=== PATIENT | male | born 1980 | race Caucasian/White ===

== ENCOUNTER 2021-03-15 05:08 | Emergency (ER) | payer MEDICAID, SELFPAY ==
[2021-03-15 05:11] VITALS: BP 148/84; PULSE 80; RESP 18; TEMP 36.7; O2SAT 100
--- NOTE | 2021-03-15 05:15 | DI.CT_ITS ---
Exam(s) CT ABDOMEN PELVIS W EXAM: CT ABDOMEN PELVIS W CLINICAL HISTORY: ruq pain, eval gb TECHNIQUE: Imaging Protocol: Axial computed tomography images with coronal and sagittal reformatted images were created and reviewed CONTRAST MATERIAL: Intravenous: Omnipaque 350 Contrast volume:84 mL Oral: No COMPARISON: No previous for comparison. FINDINGS: ABDOMEN: Lung Bases: Normal where visualized. Liver: Normal density. No measurable mass. Portal, Superior Mesenteric, and Splenic Veins: Unremarkable. Gallbladder and Biliary Tract: There is material seen in the dependent portion of the gallbladder whi ch may represent stones or sludge. The gallbladder measures 4.2 cm in diameter. There is a question of mild pericholecystic fluid. No significant biliary ductal dilatation. Pancreas: Normal density, no abnormal calcifications or inflammatory process. Spleen: Normal. Adrenals: No masses seen. Kidneys: Normal size, contour and axis. There is a 3 mm nonobstructing stone in the lower pole of the left kidney. There are 2 nonobstructing stones in the midpole of the right kidney. The largest is 3 mm in diameter. No masses seen. Abdominal Aorta: Abdominal portion non-dilated. Atherosclerosis. Bowel: No obstruction or bowel wall thickening. No evidence of appendicitis. Peritoneal Cavity: No ascites, collection or mesenteric inflammatory response. No free air. Lymph Nodes: Within normal limits. Bones: Within normal limits for the patient's age. Soft Tissues: Unremarkable. PELVIS: Bladder: Symmetric distention, no gross wall thickening. Reproductive Organs: Unremarkable as visualized. Lymph Nodes: Within normal limits. Bones: Within normal limits for the patient's age. IMPRESSION: 1. Distended gallbladder with minimal pericholecystic fluid. Debris is seen within the dependent por tion of the gallbladder which may represent stones or sludge. No biliary ductal dilatation. If ther e is concern for acute cholecystitis/cholelithiasis gallbladder ultrasound is recommended. 2. Bilateral nephrolithiasis. No hydronephrosis. RADIATION DOSE DELIVERED: 486.27mGy.cm Total DLP DATA REPOSITORY: All CT scans at this facility are submitted to the National Radiology Data Registry (NRDR) Dose Index Registry (DIR) with the [employer] (ACR). RADIATION OPTIMIZATION: All CT scans at this facility use at least one of these dose optimization te chniques: automated exposure control; mA and/or kV adjustment per patient size (includes targeted exa ms where dose is matched to clinical indication); or iterative reconstruction.
--- NOTE | 2021-03-15 05:18 | W.ED.GENAD ---
Discharge Plan Disposition Patient Disposition: HOME Condition: Good Discharge Details Clinical Impression: Biliary colic Primary Care Provider: Lacy Wheeler ED Provider: Joseluis Avendano Home Meds and New Rx's Prescriptions: No Action No Known Home Meds RF: 0 Discharge Instructions Instructions: Biliary Colic (ED), Low Fat Diet (ED) Additional Instructions: At this time your symptoms are consistent with what is called biliary colic. Your gallbladder is somewhat distended, but does not need to be emergently surgically removed at this time. Please follow-up closely on an outpatient basis with the surgeon. We then placed a referral, you will be called with a appointment time. Please avoid any fatty greasy or dairy product as this will reignite your symptoms. Take Tylenol and Motrin as needed for pain. If you notice any worsening of your symptoms, or any new symptoms such as vomiting, diarrhea, fever, chills, shortness of breath, chest pain, numbness, weakness, or fainting , please return immediately to the emergency department for reevaluation. Please follow up with your primary care provider as soon as possible for reassessment and reevaluation. As always, it was a pleasure participating in your medical care today. Referrals: Ольга Coelho MD [ [facility] STAFF PHYSICIAN] - Cathryn Jimenez DO [OSTEOPATHIC DOCTOR] - Lacy Wheeler NP [Primary Care Provider] - Medical Decision Making There is this is a 40-year-old male with a past medical history of hepatitis C, previous appendectomy, chronic mild GI upset, who presents today for evaluation of right upper quadrant abdominal pain. Patient states that it began earlier this afternoon, but then got notably worse at about 1 AM. Patient did eat a greasy meal earlier in the evening and felt that this did make his pain worse. He describes the pain is constant, worse when taking a deep breath, improved by nothing. Pain is sharp in nature, and he feels that it wraps around the right side of his back and abdomen. No radiation to the groin. No urinary complaints. No chest pain. No shortness of breath. No other complaints at this time. No other sick contacts at home. Physical exam demonstrates tenderness in the right upper quadrant, Positive Cross sign. Symptoms are concerning for acute Alexsandra cystitis versus biliary colic. Will give Toradol, gently rehydrate, get a CT scan, monitor closely and reassess. 7:18 AM Laboratory work-up is returned and is notably unremarkable. No white count bandemia or left shift, electrolytes normal, renal function normal, transaminases and bilirubin are normal. Lipase is normal. CT scan shows evidence of a prominent gallbladder that is distended with sludge as well as minimal wall thickening up to 4 mm, minimal intrahepatic biliary dilatation, but the common bile duct is normal. Gallstones are noted. On reassessment after morphine and Toradol patient's pain is gone from a 10 out of 10 to a 5 out of 10. He is feeling better. I did contact surgery on-call and discussed the case with Dr. Dye, she personally reviewed the images, and at this time with normal labs, no white count or fever, there is does not appear to be an indication for an emergent cholecystectomy as there is no evidence of significant cholecystitis. We will schedule outpatient follow-up for the patient. I discussed with the patient the importance of close surgical follow-up, as well as signs and symptoms that would be indicative of a prompt return. We also had a lengthy discussion about appropriate diet for biliary colic. On reassessment of the abdomen prior to discharge the patient demonstrates no clinical evidence at all of an acute surgical abdomen. Pain resolved. I have extensively reviewed the treatment plan and discharge instructions with the patient. I have addressed all patient concerns at this time. The patient was made aware of what symptoms to monitor for that would warrant a return to the emergency department. Discussed the plan with the patient, they demonstrate verbal understanding and agreement with our assessment and plan at this time. The documentation in this chart was dictated using [employer] dictation software. Please excuse any dictation errors. FINDINGS: Lungs: Lung bases are clear. Liver: Normal. No mass. Gallbladder and bile ducts: Gallbladder is prominently distended. Sludge is seen in the lumen. No significant pericholecystic fluid noted. There is minimal wall thickening up to 4 mm. Minimal intrahepatic biliary dilatation. Common duct is normal. Pancreas: Normal. No ductal dilation. Spleen: Normal. No splenomegaly. Adrenal glands: Normal. No mass. Kidneys and ureters: Kidneys enhance symmetrically. There is a punctate nonobstructing left renal lower pole stone. Stomach and bowel: Unremarkable. No obstruction. No mucosal thickening. Appendix: Not identified. No secondary signs of appendicitis. Intraperitoneal space: Unremarkable. No free air. No significant fluid collection. Vasculature: Atherosclerotic aorta without aneurysm. No dissection. Lymph nodes: Unremarkable. No enlarged lymph nodes. Urinary bladder: Unremarkable as visualized. Reproductive: Unremarkable as visualized. Bones/joints: Unremarkable. No acute fracture. Soft tissues: Unremarkable. IMPRESSION: Prominent gallbladder distention with sludge in the lumen. No intra or extrahepatic biliary dilatation seen. Left nephrolithiasis. Thank you for allowing us to participate in the care of your patient. Dictated and Authenticated by: Smiley Villarreal MD 03/15/2021 6:55 AM Eastern Time ([place] & [place]) HPI General Date/Time Provider Initiated Documentation: 03/15/21 05:09. HPI Narrative: There is this is a 40-year-old male with a past medical history of previous appendectomy, chronic mild GI upset, who presents today for evaluation of right upper quadrant abdominal pain. Patient states that it began earlier this afternoon, but then got notably worse at about 1 AM. Patient did eat a greasy meal earlier in the evening and felt that this did make his pain worse. He describes the pain is constant, worse when taking a deep breath, improved by nothing. Pain is sharp in nature, and he feels that it wraps around the right side of his back and abdomen. No radiation to the groin. No urinary complaints. No chest pain. No shortness of breath. No other complaints at this time. No other sick contacts at home. Related Data Home Medications Medication Instructions Recorded Confirmed Unknown [No Known Home Meds] 03/15/21 03/15/21 Allergies Allergy/AdvReac Type Severity Reaction Status Date / Time No Known Allergies Allergy Unverified 03/15/21 05:17 General Stated Complaint: Abd Prob ALONDRA: 3 Review of Systems All systems reviewed & are unremarkable except as noted in HPI and below PFSH Social History Smoking/Tobacco Use Status: Current every day Tobacco Type: cigarettes Smoking risk assessment performed?: Yes Alcohol Intake: never Substance use type: does not use and marijuana Do you feel safe at home: Yes Do you feel safe in your relationship?: Yes Exam Narrative Exam Narrative: 1.Const: Well-nourished, Well-developed, appearing stated age 2.Eyes: PERRL, no conjunctival injection, and symmetrical lids. 3.ENT: Atraumatic external nose and ears. Moist MM. Neck: Symmetric, trachea midline, No thyromegaly. 4.CVS: +S1/S2, No murmurs or gallops. Peripheral pulses 2+ and equal in all extremities. Brisk capillary refill in all extremities. 5.RESP: Unlabored respiratory effort. Clear to auscultation bilaterally. No wheezes rales or rhonchi 6.GI: Soft, nondistended, no hepatosplenomegaly, moderate tenderness in the right upper quadrant, positive Cross sign, no pain to McBurney's point. No genital tenderness. No CVA tenderness. 7.MSK: Normocephalic/Atraumatic, Extremities w/o deformity or ttp No cyanosis or clubbing, Normal movement of all extremities 8.Skin: Warm, Dry. No rashes or lesions. 9.Neuro: energy trader II-XII grossly intact. Sensation grossly intact, no focal neurologic deficits. 10.Psych: (AAO) x3. Appropriate mood and affect Course Vital Signs Vital signs: Vital Signs Temperature 36.7 C 03/15/21 05:11 Pulse 80 03/15/21 05:11 Respiratory Rate 18 03/15/21 05:11 Blood Pressure 148/84 H 03/15/21 05:11 Pulse Oximetry 100 03/15/21 05:11 Temperature 36.7 C 03/15/21 05:11 Temperature Source Temporal Artery Scan 03/15/21 05:11 Pulse 80 03/15/21 05:11 Respiratory Rate 18 03/15/21 05:11 Blood Pressure 148/84 H 03/15/21 05:11 Blood Pressure Position Supine 03/15/21 05:11 Pulse Oximetry 100 03/15/21 05:11 Oxygen Delivery Method Room Air 03/15/21 05:11 Oxygen Flow Rate 0 03/15/21 05:11 Pain Level 8 03/15/21 05:11
[2021-03-15 05:30] LABS: Abs Immature Grans 0.03 10^3/uL (0.0-0.06); Absolute Basophil Count 0.03 10^3/uL (0.0-0.2); Absolute Eosinophil Count 0.14 10^3/uL (0.0-0.7); Absolute Lymphocyte Count 2.91 10^3/uL (1.2-3.4); Absolute Monocyte Count 0.73 10^3/uL (0.1-0.8); Absolute Neutrophil Count 5.83 10^3/uL (1.2-6.7); Basophils % 0.3; Eosinophils % 1.4; HCT 41.8 % (40.0-50.0); HGB 14.5 g/dL (13.5-17.5); Immature Grans % 0.3; Lymphocytes % 30.1; MCHC 34.7 % (32.0-36.0); MCV 95.2 fL (80-95); MPV 9.7 fL (8.0-11.0); Monocytes % 7.5; Neutrophils % 60.4; Nucleated RBC 0 %; Platelet Count 283 10^3/uL (130-400); RBC 4.39 10^6/uL (4.36-5.78); RDW 12.6 % (11.8-14.1); RDW-SD 44.1 fL; WBC 9.67 10^3/uL (4.4-10.8)
[2021-03-15] MEDS: Ondansetron 4 MG/2 ML VIAL IVP (05:30)
[2021-03-15] MEDS: Normal Saline 500 ML IV (05:30)
[2021-03-15] MEDS: Ketorolac 15 MG/ML VIAL IVP (05:30)
[2021-03-15 06:02] LABS: ALT 39 U/L (16-63); AST 18 U/L (15-37); Albumin 3.7 g/dL (3.4-5.0); Alkaline Phosphatase 66 U/L (46-116); Anion Gap 5.4 mmol/L (3-11); BUN 17 mg/dL (7-18); Bilirubin, Total 0.2 mg/dL (0.2-1.0); CO2 28.6 mmol/L (21.0-32.0); CREATININE 0.8 mg/dL (0.70-1.30); Calcium 8.3 mg/dL (8.5-10.1); Chloride 107 mmol/L (98-107); Glucose 104 mg/dL (74-106); Lipase 172 U/L (73-393); Potassium 3.5 mmol/L (3.5-5.1); Sodium 141 mmol/L (136-145); Total Protein 6.8 g/dL (6.4-8.2)
--- NOTE | 2021-03-15 06:06 | NUR.NOTE ---
Reports pain slightly better after medication administration. Unable to void at this time. CT called; patient ready.Nursing Note:
[2021-03-15 06:25] VITALS: BP 147/88; PULSE 76; RESP 18; O2SAT 99
--- NOTE | 2021-03-15 06:25 | NUR.NOTE ---
returns from DINursing Note:
[2021-03-15] MEDS: Omnipaque 350 MG/ML 100 ML BTL IJ (06:27)
[2021-03-15] MEDS: Normal Saline - Diluent 50 ML VIAL IV (06:28)
--- NOTE | 2021-03-15 06:56 | DI.VRAD_ITS ---
PROCEDURE INFORMATION: Exam: CT Abdomen And Pelvis With Contrast Exam date and time: 03/15/2021 5:18 AM Age: 40 years old Clinical indication: Abdominal pain; Localized; Right upper quadrant (ruq); Patient HX: Ruq pain, eval gb TECHNIQUE: Imaging protocol: Computed tomography of the abdomen and pelvis with contrast. COMPARISON: No relevant prior studies available. FINDINGS: Lungs: Lung bases are clear. Liver: Normal. No mass. Gallbladder and bile ducts: Gallbladder is prominently distended. Sludge is seen in the lumen. No significant pericholecystic fluid noted. There is minimal wall thickening up to 4 mm. Minimal intrahepatic biliary dilatation. Common duct is normal. Pancreas: Normal. No ductal dilation. Spleen: Normal. No splenomegaly. Adrenal glands: Normal. No mass. Kidneys and ureters: Kidneys enhance symmetrically. There is a punctate nonobstructing left renal lower pole stone. Stomach and bowel: Unremarkable. No obstruction. No mucosal thickening. Appendix: Not identified. No secondary signs of appendicitis. Intraperitoneal space: Unremarkable. No free air. No significant fluid collection. Vasculature: Atherosclerotic aorta without aneurysm. No dissection. Lymph nodes: Unremarkable. No enlarged lymph nodes. Urinary bladder: Unremarkable as visualized. Reproductive: Unremarkable as visualized. Bones/joints: Unremarkable. No acute fracture. Soft tissues: Unremarkable. IMPRESSION: Prominent gallbladder distention with sludge in the lumen. No intra or extrahepatic biliary dilatation seen. Left nephrolithiasis. Dictated and Authenticated by: Smiley Villarreal MD. Ordering:INA Huggins MD
[2021-03-15] MEDS: ACETAMINOPHEN 1,000 MG/100 ML BTL 400 MG IVPB (07:18)
--- NOTE | 2021-03-15 07:24 | NUR.NOTE ---
Nursing Note: [facility]erral [facility] for follow up of biliary colic within to 2 weeks. Lady Perales
[2021-03-15 07:46] VITALS: BP 133/84; PULSE 74; RESP 18; TEMP 36.8; O2SAT 97
== END 2021-03-15 07:45 | disposition home or self-care (01) ==
PROVIDERS: Emergency Provider Student in an Organized Health Care Education/Training Program; PCP Nurse Practitioner Family
DX: K80.50 Calculus of bile duct without cholangitis or cholecystitis without obstruction (principal)
CPT/HCPCS: 36415; 80053; 83690; 96361; 96365; 96375; 96376; 99285; 74177; 81003; 85025; 99284; J0131; J1885; J2405; J3490

== ENCOUNTER 2021-04-01 00:59 | Outpatient (CLI) | payer MEDICAID, SELFPAY ==
--- NOTE | 2021-04-01 06:15 | DI.US_ITS ---
Exam(s) US ABDOMEN EXAM: US ABDOMEN CLINICAL HISTORY: ruq pain and nausea,biliary colic,k80.50 TECHNIQUE: Ultrasound abdomen performed using standard protocol. COMPARISON: CT CT ABDOMEN PELVIS W from 03/15/2021 FINDINGS: ABDOMINAL AORTA AND IVC: Visualized portions normal caliber. PANCREAS: Normal where visualized. LIVER: Normal. Hepatopedal flow in the Portal Vein. GALLBLADDER: Multiple mobile gallstones are seen. No evidence of wall thickening. No pericholecystic fluid identified. BILIARY SYSTEM: Common bile duct measures < 7 mm. No intrahepatic biliary ductal dilation. MARTE'S SIGN: Negative. KIDNEYS: Kidneys are symmetric in size. No evidence of renal calculi. No evidence of hydronephrosis. No renal mass or cyst identified. SPLEEN: Not enlarged. ASCITES: None seen. IMPRESSION: Cholelithiasis. No sonographic findings to suggest acute cholecystitis. DATA REPOSITORY:
== END 2021-04-01 01:19 ==
PROVIDERS: Visit Provider Surgery
DX: K80.20 Calculus of gallbladder without cholecystitis without obstruction (principal)
CPT/HCPCS: 76700

== ENCOUNTER 2021-04-02 01:28 | Outpatient (CLI) | payer MEDICAID, SELFPAY ==
--- NOTE | 2021-04-02 08:00 | ETT_ITS ---
APPROVED REPORT Exam: Exercise Treadmill Patient Location: Out-Patient Room/Bed: Stress Nurse: France Elise RN Ordering Provider:MISAELOscar MARAVILLA, Contact Number: [phone] BMI: 19.19 Baseline Rhythm: Sinus Rhythm Indications: preop/ dad NC 31/ chest pain and palpitations, smoker Medical History Medical History: Hyperlipidemia, COPD, smoker, anxity, hx drug abuse, hepatitis C Cardiac Medications: None Allergies: NKA Cardiac Risk Factors: Hyperlipidemia, COPD, smoker, family hx Previous Cardiac Procedures: None Pretest Chest Pain Characteristics: None Exercise History: Sedentary Physical Disabilities: None Lung Sounds: Clear to auscultation Heart Sounds: Regular Stress Test Details Test: Exercise stress testing was performed using a [place] protocol. Rest Stress HR Resting HR Supine: 64 bpm Max Heart Rate (APMHR): 181 bpm Resting HR Standin bpm Target HR (85% APMHR): 153 bpm Max HR Achieved: 158 bpm % of APMHR: 87 Recovery HR: 90 bpm HR response to stress: Normal HR response to stress BP Resting BP Supine: 126/80 mmHg Resting BP Standin/80 mmHg Max BP: 190/88 mmHg Recovery BP: 132/76 mmHg BP response to stress: Normal blood pressure response to stress. ECG Resting ECG: Sinus Rhythm Ectopy: None Stress ECG: Sinus Tachycardia ST Change: No significant ST segment changes noted Arrhythmia: None Recovery ECG: Sinus Rhythm Recovery ST Change: No significant ST segment changes noted Recovery Arrhythmia: Occasional PAC, rare PVC Clinical Reason for Termination: Fatigue Stress Symptoms: General Fatigue, Dyspnea, Dizziness Exercise duration: 11 min59 sec Highest Stage Reached: Stage 4: 4.2 mph at 16% grade. Exercise capacity: 13.48 METs Rodriguez Treadmill Score: 11 Rate Pressure Product: [id number] Stress ECG Conclusion 1. Resting electrocardiogram was within normal limits 2. Patient exercised on the [place] protocol and completed a workload of 13.48 METS, stopping due to fa tigue and shortness of breath 3. Normal hemodynamic response to exercise. The patient achieved 87% of predicted heart rate for age 4. Electrocardiographically there was no evidence of myocardial ischemia 5. There were no significant dysrhythmias Rodriguez Treadmill Score is 11 which is Low risk.
== END 2021-04-02 01:48 ==
PROVIDERS: Visit Provider Surgery
DX: Z82.49 Family history of ischemic heart disease and other diseases of the circulatory system (principal); Z86.59 Personal history of other mental and behavioral disorders; R76.8 Other specified abnormal immunological findings in serum; F41.9 Anxiety disorder, unspecified; F17.210 Nicotine dependence, cigarettes, uncomplicated; K80.50 Calculus of bile duct without cholangitis or cholecystitis without obstruction; E78.2 Mixed hyperlipidemia; J44.9 Chronic obstructive pulmonary disease, unspecified
CPT/HCPCS: 93017

== ENCOUNTER 2021-05-04 02:42 | Outpatient (CLI) | payer MEDICAID, SELFPAY ==
[2021-05-04 10:36] LABS: Source Nasal/Nares
[2021-05-04 14:32] LABS: COVID-19 PCR Negative (Negative)
== END 2021-05-04 02:43 | disposition home or self-care (01) ==
LOC: LBO 02:42
PROVIDERS: Visit Provider Surgery
DX: Z20.822 Contact with and (suspected) exposure to COVID-19 (principal)
CPT/HCPCS: 87635

== ENCOUNTER 2021-05-05 08:57 | Day surgery (SDC) | payer MEDICAID, SELFPAY ==
[2021-05-05] VITALS (12 sets, daily range): BP systolic 113–146; BP diastolic 62–89; PULSE 63–73; RESP 12–27; TEMP 36.4–36.8; O2SAT 96–100; BMI 19.0
--- NOTE | 2021-05-05 06:27 | W.ANESPRE ---
General Info Date of Service Date Performed: 05/05/21 Height: 5 ft 9 in Weight: 58.513 kg Body Mass Index (BMI): 19.0 Surgical Procedure: Operation Date: 05/05/21 11:25 Proposed Procedures Side Surgeon p Cholecystectomy Laparoscopic Cathryn Jimenez, DO Meds Allergies and Home Medications Allergies Allergy/AdvReac Type Severity Reaction Status Date / Time No Known Allergies Allergy Unverified 05/05/21 09:20 Home Medication Medication Instructions Recorded acetaminophen [Acetaminophen Extra 1,000 mg PO DIRECTED 05/04/21 Strength] Current Visit Medications: Current Medications Generic Name Dose Route Start Last Admin Trade Name Freq PRN Reason Stop Dose Admin Acetaminophen 1,000 mg 05/05/21 06:00 Acetaminophen 500 Mg Tab PO 06/03/21 23:59 PREOP AINSLEY Gabapentin 300 mg 05/05/21 06:00 Gabapentin 300 Mg Cap PO 06/03/21 23:59 PREOP AINSLEY Ringer's Solution 1,000 mls @ 80 mls/hr 05/05/21 06:00 IV 06/03/21 23:59 INFUSION AINSLEY Cefazolin Sodium/Dextrose 2 gm in 50 mls @ 100 mls/hr 05/05/21 06:00 Ancef Duplex IVPB 06/03/21 23:59 PREOP AINSLEY IV Miscellaneous Supplies 1 each 05/05/21 06:00 Iv Access IV 06/03/21 23:59 DIRECTED AINSLEY Sodium Chloride 0 ml 05/05/21 06:00 Normal Saline Flush 10 Ml Syr IV 06/03/21 23:59 PRN PRN Sodium Chloride 0 ml 05/05/21 06:00 Normal Saline 10 Ml Vial IJ 06/03/21 23:59 DIRECTED PRN Sterile Water 0 ml 05/05/21 06:00 Water,Injection,Sterile 10 Ml Vial IJ 06/03/21 23:59 DIRECTED PRN PFSH Active Problems Active Problems: Problem Status Onset Code Gallstones without obstruction of gallbladder K80.20 Elevated cholesterol E78.00 COPD (chronic obstructive pulmonary disease) J44.9 Family history of NC (myocardial infarction) Z82.49 Hx of drug abuse F19.11 Hepatitis C antibody positive in blood R76.8 Anxiety F41.9 Smoker F17.200 Biliary colic K80.50 Medical History Active Problem List Biliary colic (Acute) Smoker (Acute) Anxiety (Chronic) Hepatitis C antibody positive in blood (Acute) Hx of drug abuse (Acute) Family history of NC (myocardial infarction) (Acute) COPD (chronic obstructive pulmonary disease) (Chronic) Elevated cholesterol (Chronic) Gallstones without obstruction of gallbladder (Acute) Medical History Elevated cholesterol with elevated triglycerides Surgical History Surgical History (Updated 05/05/21 @ 09:09 by Maximiliano Love) History of appendectomy Tobacco Smoking/Tobacco Use Status: Current every day Tobacco Type: cigarettes Alcohol Alcohol Intake: never Substance Use Substance use: Never Substance use type: former substance user Vital Signs and Lab Results Lab Results Blood Type / Crossmatch: No Data to Display Complete Blood Count: No Data to Display Complete Metabolic Panel: No Data to Display Liver Function Panel: No Data to Display Coagulation Panel: No Data to Display Cardiac Panel: No Data to Display Arterial Blood Gas: No Data to Display Venous Blood Gas: No Data to Display Pancreas Panel: No Data to Display Thyroid Panel: No Data to Display Infectious Disease: Coronavirus (COVID-19)(PCR) Negative (Negative) 05/04/21 09:50 05/04/21 Coronavirus 2019 Source Nasal/Nares 05/04/21 09:50 05/04/21 Blood Cultures: No Data to Display Toxicology Panel: No Data to Display Imaging and Studies Imaging and Studies Stress Test Summary: 2020: normal EKG, 13.4 mets. 87% of predicted. no evidence of ischemia. 2016: myocardial perfusion imaging with no defects. LVEF 62%. Pulmonary Function Summary: 2015: mild obstructive airway dz with no significant bronchodilator response. Other Study Summary:: Sleep study 2015: mild central sleep apnea. Anesthesia Assessment and Plan Anesthesia History Personal History: No History of Anesthesia Complications Family History: No Family History of Anesthesia Complications Exercise Tolerance Exercise Tolerance: Metabolic Equivalents<4 Cardiac & Pulmonary Exam Cardiac Exam: Normal S1/S2 Heart Sounds Pulmonary Exam: Clear Bilateral Breath Sounds Implantable Cardiac Device Does patient have a Pacemaker or an ICD?: No Airway Exam Known Difficult Airway: No Mallampati Class: 1 Mouth Opening: Normal (> 3cm) Thyromental Distance: Greater than 3 cm Neck Range of Motion: Full ROM Neck Circumference: Normal Teeth Condition: Removable Dentures/Plates Upper and Edentulous ASA Classification ASA Score: ASA 2 Emergency Case?: No NPO Status NPO Status: NPO Clears >2 hours, Solids >8 hours Anesthesia Plan Resuscitation Status: Full Code Anesthesia Technique: General Anesthesia Airway Planned: Endotracheal Tube Monitors Used: Standard Monitors Preoperative Comments:: 40 yo male for lap eder for gallstones. Sig PMHx: every day smoker, COPD, HepC, former IVDU.
[2021-05-05] MEDS: Gabapentin 300 MG CAP PO (09:37)
[2021-05-05] MEDS: Acetaminophen 500 MG TAB 1000 MG PO (09:37)
[2021-05-05] MEDS: Lactated Ringers 1,000 ML 80 ML IV (09:38)
[2021-05-05] MEDS: ceFAZolin 2 GM/50 ML BAG IVPB (12:49)
[2021-05-05] MEDS: Cellulose,Oxidized 4X8 1 PACKET MC (13:45)
--- NOTE | 2021-05-05 13:45 | GB_PTH ---
PATIENT: Topher Hudson LOC: [facility] U#:[id number] AGE/SX: 40/M ROOM: RE05/05/[address]: Cathryn Jimenez : 1980 BED: DIS: 05/05/2021 SPEC #: [id number] RECD: 05/05/21 17:54 STATUS: BERNA REQ #: [id number] ALANNA: 05/05/21 13:[address]: Cathryn Jimenez DEPT: Surgical Specimen RECD BY: Juanita Rizzo ENTERED: 05/05/21 17:55 SP TYPE: GB OTHR DR: Unknown,Unknown Tissues: 1 - GALLBLADDER Procedures: GROSS AND MICRO LEVEL 3 Comments: [id number]
[2021-05-05] MEDS: Bupivacaine 0.25% Pres-Free 30 ML VIAL (13:58)
[2021-05-05] MEDS: Bupivacaine LIPOSOME/PF 133 MG/10 ML VIAL IJ (14:11)
[2021-05-05] MEDS: LORazepam 2 MG/ML VIAL 0.5 MG IVP (14:50)
--- NOTE | 2021-05-05 14:52 | ROE_ITS ---
Date of service: 05/05/21 Time of Service: 14:52 Operative Note Operative Note DATE OF PROCEDURE: 05/05/21 PRE-OP DIAGNOSIS: gallstones POST-OP DIAGNOSIS: other (cirrhosis. bilateral inguinal hernias) PROCEDURE: lap eder SURGEON: Cathryn Maravilla PROPOSAL DEVELOPMENT MANAGER: Alicia Reyes ANESTHESIA TYPE: Local By Surgeon, General LMA/ETT and Primary Nerve Block Refer to Anesthesia Record ESTIMATED BLOOD LOSS: 50 PATHOLOGY: other COMPLICATIONS: None Patient was transported to: PACU Procedure Description: The pt is seen at the request of there PCP regarding acute on chronic cholecystitis, cholelithiasis. The pt has failed outpt conservative medical measures and is here today for laparoscopic cholecystectomy. Informed consent was obtained, explaining risks and benefits of the procedure including but not limited to bleeding, infection, pneumonia, blood clots, possible damage to bowel, bladder, blood vessels, bile ducts, possible open procedure, complications of general anesthesia and other unforetold complications. PROCEDURE: The patient agrees and is brought to the operative room suite and placed in supine position. Anesthesia was administered per the Department of Anesthesia. The patient did receive IV antibiotics. NG tube and Dallas catheter are placed. The patient was prepped and draped in the usual sterile fashion using DuraPrep scrub solution. Pause for the cause was done. 20 mL of 1% buffered lidocaine was used for local anesthetization. A stab incision was made in the umbilicus and the Verres inserted. Drop test was positive and insufflation was begun. When 15 mm of pressure was noted on the monitor, the Veress was removed and #5 port inserted. The camera was inserted through the port and shows no damage to underlying structures. A 10 mm port was then placed in the epigastric position under direct visualization following creation of local field blocks as well as two 5 mm ports in the right upper quadrant. The liver exhibits signs of early cirrhosis- scarring, blunting of the edges and some minimal nodularity. He has some adhesion from the gallbladder to the anterior abdominal wall. These are taken down w/ sharp dissecton. Patient has a few adhesions from the anterior abdominal wall to the cecum. These are left in place. He also has incidental bilateral inguinal hernias. The gallbladder fundus was grasped and retracted towards the right shoulder. Infundibulum was grasped and retracted laterally. The duodenum is adhered up to the GB as well. This is taken down w/ sharp dissection as well. The hepat-duodenal ligament is entered. The cystic duct and artery are dissected out and the most inferior portion of the gallbladder plate is removed from the liver and the critical view of safety was obtained after clearing away all fatty material. Endo Clips were placed across the duct and artery and these structures are divided. The remainder of the gallbladder was excised from the liver bed usinf electro-cautery. The gallbladder was placed in a bag and brought out. Examination of the gallbladder shows indeed the cystic duct and artery to have been divided. A bleeding vessel in the GB fossa is clipped. Surgicell is placed over this as well. The remainder of the abdomen was copiously irrigated with a liter of saline. All saline is removed. There is no bleeding or bile leakage from the liver bed or the clips sites. An EndoClose needle was used to close the 10 mm port site with an 0 Vicryl. The epigastric port site is infiltrated with 10 cc of Exparel. All ports and instruments are removed. SPonge and needle counts are correct. Pneumoperitoneum is evacuated and the port sites are monitored to make sure there is no bleeding at the time of desufflation. Port sites are irrigated and the skin is closed with 4-0 Monocryl in a running subcuticular fashion. Skin glue sterile dressings are applied. The patient tolerated the procedure well without complications, transferred to the recovery room in stable condition. CATHRYN MARAVILLA DO
[2021-05-05] MEDS: HYDROmorphone 2 MG/ML VIAL IVP ×4 (14:59→15:30)
--- NOTE | 2021-05-05 15:23 | W.ANESPOSTOP ---
Postoperative Evaluation Date, Time and Location Date Performed: 05/05/21 Time Performed: 15:15 Patient Location: PACU Vital Signs Most Recent Imported Vital Signs: Most Recent Vital Signs Temp Pulse Resp BP Pulse Ox 36.4 C L 69 12 122/62 100 05/05/21 15:15 05/05/21 15:15 05/05/21 15:15 05/05/21 15:15 05/05/21 15:15 Pain Score Most Recent Pain Score: Most Recent Pain Score Pain Level 6 05/05/21 15:15 Assessment Mental Status: Arousable with meaningful communication Airway and Respiratory Function: Patent airway with normal (patient baseline) respiratory exam Cardiovascular Function: Hemodynamically Stable Hydration Status: Adequately Hydrated Nausea & Vomiting: No Nausea or Vomiting Pain: Pain is tolerable per patient Peripheral Nerve Block: Patient did not receive a nerve block
--- NOTE | 2021-05-05 16:27 | PDOC.DSDIS_ITS ---
Discharge Plan Disposition Patient Disposition: HOME Condition: Good Discharge Details Reason For Visit: gallbladder removal Attending Provider: Cathryn Jimenez Primary Care Provider: Unknown,Unknown Home Meds and New Rx's Prescriptions: New tramadol 50 mg tablet 50 mg PO Q6H PRNQty: 10 RF: 0 ibuprofen 600 mg tablet 600 mg PO Q6H Qty: 90 RF: 0 ondansetron HCl [Zofran] 4 mg tablet 4 mg PO Q6H PRNQty: 5 RF: 0 Continued acetaminophen [Acetaminophen Extra Strength] 500 mg Tablet 1,000 mg PO DIRECTED RF: 0 Discharge Instructions Additional Instructions: Care after Gallbladder Surgery -Pain control: For the first 72 hours after surgery, take you pain meds continuously and not just when you have pain. Alternate Tylenol 1000mg by mouth every 8 hours, and Ibuprofen 600mg every 6 hours. Make sure you take ibuprofen with food and not on an empty stomach. Use the tramadol for breakthrough pain- pain that is greater than a 7. - Use ICE! Ice really helps to keep the swelling down, and swelling causes pain. Twenty minutes on, and then off, continuously for the first 72hours. After the first 72hrs, you can just use the Tylenol, ibuprofen or Celebrex, and ice, when you have pain. If you are taking narcotic pain medication, follow the instructions on the label and do not drive. Pain medications can make you very constipated. Make sure you are moving your bowels daily. If not, take Miralax, milk of magnesia or magnesium citrate. - Anesthesia makes you very constipated. Take a dose of milk of magnesia the morning after surgery. ? Use an ice bag for the first 72 hours. This helps to decrease swelling, which causes pain. It is normal to be more sore/painful and swollen towards the end of the day and first thing in the morning. ? Gallbladder surgery can make you very nauseated; use Zofran for nausea, for the first 24 hours. The nausea generally stops after 24 hours. ? Use milk of magnesia or prune juice to prevent constipation (this is a particular side effect of pain medication and anesthesia). Do not allow yourself to become constipated. ? Avoid fatty or greasy foods; introduce these slowly, with care, after about 1 month. High-fat foods include: ? Foods that are fried, like [place] fries and potato chips ? High-fat meats, such as you, bologna, sausage, ground beef, and ribs, pork products ? High-fat dairy products, such as cheese, ice cream, cream, whole milk, and sour cream ? Pizza ? Foods made with lard or butter ? Creamy soups or sauces ? Meat gravies ? Chocolate ? Oils, such as palm and coconut oil ? Skin of chicken or turkey Nuts and nut butters [place] ? Start out eating very small, bland amounts of food. Do not take pain pills on an empty stomach. - You will notice purple discoloration around the incisions. This is the ?skin glue?. This will wear off on its own. It is OK to shower after 24hrs. You do not need to cover the incisions. - -You should walk frequently, gradually, increasing the distance. You may climb stairs, just go slowly. ? Do not go swimming or sit in a hot tub for two weeks. ? There are no stitches to remove. ? Do not drive your car x72hrs and then only if you have no pain and can move freely. Do not drive if you are taking pain narcotic pain medications. ? You may resume sexual activity whenever pain and soreness subside, usually in 2 weeks. ? Do no lift anything over 5 lbs. for two weeks. ? You may return to work in one week, or when you feel able, provided you do not have to do any heavy lifting or prolonged standing. ? You should return to Dr. Jimenez?s office for a post-op appointment about one week after surgery. Please call the [facility] at: [phone] to schedule an appointment. My Medications for pain and nausea are: Celebrex and ultram, and zofran When to Call the Office: ? If the incision becomes red or swollen, or there is more than a little drainage from it. ? If you develop a temperature higher than 100.5 F. ? If your eyes turn yellow ? Vomiting and can?t keep fluids down Stand Alone Forms: Anesthesia Discharge Miguel Angel Molina (DSU) Activity:: see above Remove Dressings/Wound Care:: 24 hours Shower/Bathe:: 24 hours Diet:: low fat DS: Diagnosis Discharge Diagnosis (1) Biliary colic: Status: Acute (2) Smoker: Status: Acute (3) Anxiety: Status: Chronic (4) Hepatitis C antibody positive in blood: Status: Acute (5) Hx of drug abuse: Status: Acute
[2021-05-05] MEDS: ACETAMINOPHEN 1,000 MG/100 ML BTL 400 MG IVPB (16:54)
[2021-05-05] MEDS: Normal Saline Flush 10 ML SYR IV (16:55)
[2021-05-05] MEDS: Gabapentin 100 MG CAP PO (16:57)
[2021-05-05] MEDS: LORazepam 0.5 MG TAB PO (17:24)
== END 2021-05-05 18:05 | disposition home or self-care (01) ==
PROVIDERS: Visit Provider Surgery
PROC: 0FT44ZZ Resection of Gallbladder, Percutaneous Endoscopic Approach (ICD-10-PCS; CPT 47562; principal; 2021-05-05 11:15)
DX: K80.10 Calculus of gallbladder with chronic cholecystitis without obstruction (principal); F17.210 Nicotine dependence, cigarettes, uncomplicated; J44.9 Chronic obstructive pulmonary disease, unspecified; E78.00 Pure hypercholesterolemia, unspecified; K82.8 Other specified diseases of gallbladder
CPT/HCPCS: 47562; 88304; J0131; J0690; J1100; J1885; J2060; J2405; J2704; J3475

== ENCOUNTER 2023-03-22 08:53 | Emergency (ER) | payer MEDICAID, SELFPAY ==
[2023-03-22] VITALS (59 sets, daily range): BP systolic 138–161; BP diastolic 53–117; PULSE 52–59; RESP 8–24; TEMP 36.8–37.1; O2SAT 97–100
--- NOTE | 2023-03-22 09:00 | RT.EKG_ITS ---
APPROVED REPORT Exam: Resting ECG Reason for Exam: epigastric pain Patient Location: E HR:52 bpm ECG Measurements Heart Rate 52 AXIS KS 103 P 79 QRSd 97 QRS 80 QT 425 T 62 QTc 396 Conclusion Sinus bradycardia...rate< 60 Otherwise normal ECG I have reviewed and interpreted ECG and agree with software generated interpretation.
--- NOTE | 2023-03-22 09:23 | ED.GENADUL_ITS ---
Discharge Plan Disposition Patient Disposition: Home Discharge Details Clinical Impression: Abdominal pain Primary Care Provider: Unknown,Unknown ED Provider: Sissy Vieira Home Meds and New Rx's Prescriptions: New ondansetron 4 mg tablet,disintegrating 4 mg PO Q8H PRN (Reason: nausea) Qty: 30 0RF polyethylene glycol 3350 [Miralax] 17 gram/dose powder 17 g PO DAILY Qty: 238 0RF No Action acetaminophen [Acetaminophen Extra Strength] 500 mg Tablet 1,000 mg PO DIRECTED ibuprofen 600 mg tablet 400 mg PO Q6H Rx Instructions: w/ food Discharge Instructions Instructions: Abdominal Pain (ED) Additional Instructions: Emergency department work-up today did not reveal concerning findings. Lab work and CT imaging is normal. Recommend starting MiraLAX daily for constipation. Increase water intake. You have been prescribed Zofran to take as needed for nausea. Continue Motrin or Tylenol for additional pain. If symptoms significantly worsen, you develop fever, not tolerating anything by mouth please return to the emergency department for reevaluation. You have been referred to establish a primary care provider. Medical Decision Making Emergent evaluation of abdominal pain. Initial differential includes renal colic, urinary tract infection, liver failure. Patient is afebrile and hemodynamically stable. Given his medical history and untreated hepatitis C and cirrhosis, though he has no signs of acute liver failure at this time, I will check lab work and get CT imaging of his abdomen. Will give medications for nausea and pain 1000: reviewd CBC, unremarkable. 1120: Remaining labs are unremarkable urinalysis without signs of infection. CT scan does not demonstrate an etiology of his abdominal pain. Given his complaints of constipation, will start MiraLAX. We will also prescribe Zofran for nausea. At this time there is no additional emergent work-up indicated. No need for admission. Follow-up with primary care as needed. Return precautions advised. Medical Records Medical records reviewed: Yes I reviewed the patient's medical records. Lab Data Lab results reviewed: Yes I reviewed the patient's lab results. ECG Data Attestation: I personally reviewed and interpreted this ECG (s) as follows: Prior ECG tracings: not available for review Interpretation: sinus gurdeep, no acute ST segment changes HPI General Date/Time Provider Initiated Documentation: 03/22/23 09:04 . Limitations to Documentation: no limitations . Information obtained by: patient . HPI Narrative: 42-year-old gentleman with past medical history of COPD, hepatitis C, cirrhosis presents for evaluation of lower abdominal pain. Reports the pain starts in his back and radiates around to the front. He has pain in his lower abdomen and he feels a pressure burning sensation radiating up into his chest. Symptoms have been constant for the last 3 days. No exacerbating or relieving factors not associated with fever. Having nausea but no vomiting. Reports constipation. Reports decreased urine output and difficulty urinating. Never received treatment for his hepatitis C. Related Data Home Medications Medication Instructions Recorded Confirmed acetaminophen 500 mg tablet 1,000 mg PO DIRECTED 05/04/21 03/22/23 (Acetaminophen Extra Strength) ibuprofen 600 mg tablet 400 mg PO Q6H 03/22/23 03/22/23 ondansetron 4 mg disintegrating 4 mg PO Q8H PRN nausea #30 tabs 03/22/23 tablet polyethylene glycol 3350 17 17 g PO DAILY #238 grams 03/22/23 gram/dose oral powder (Miralax) Previous Rx's Medication Instructions Recorded ondansetron 4 mg disintegrating 4 mg PO Q8H PRN nausea #30 tabs 03/22/23 tablet polyethylene glycol 3350 17 17 g PO DAILY #238 grams 03/22/23 gram/dose oral powder (Miralax) Allergies Allergy/AdvReac Type Severity Reaction Status Date / Time No Known Allergies Allergy Unverified 03/22/23 09:15 General Stated Complaint: Abd Prob ALONDRA: 3 PFSH All Active Problems (Updated 03/22/23 @ 11:27 by Sissy Vieira MD) Abdominal pain (Acute) Cirrhosis (Acute) hep c mild Cirrhosis of liver not due to alcohol (Acute) Biliary colic (Acute) Smoker (Acute) Anxiety (Chronic) Hepatitis C antibody positive in blood (Acute) Hx of drug abuse (Acute) Family history of [place] (myocardial infarction) (Acute) COPD (chronic obstructive pulmonary disease) (Chronic) Elevated cholesterol (Chronic) Gallstones without obstruction of gallbladder (Acute) Medical History Elevated cholesterol with elevated triglycerides Surgical History History of appendectomy History of cholecystectomy (~05/05/21) Social History Smoking/Tobacco Use Status: Current every day Tobacco Type: cigarettes Years smoked: 28 Smoking risk assessment performed?: Yes Alcohol Intake: never Drug use: Occasionally Substance use type: marijuana Housing: apartment Current gender identity: male Do you feel safe at home: Yes Do you feel safe in your relationship?: Yes Exam Narrative Exam Narrative: Review of Systems: All systems reviewed & are unremarkable except as noted in HPI and below Exam: Const: Well-nourished, Well-developed, appearing stated age HEENT: NACT / Eyes: PERRL, no conjunctival injection,no jaundice and symmetrical lids / EARS Atraumatic external nose and ears / MOUTH Moist MM / NECK: Symmetric, trachea midline, No thyromegaly / THROAT oropharynx clear CVS: RRR, No murmurs or gallops. Peripheral pulses 2+ and equal in all extremities. Brisk capillary refill in all extremities. No edema RESP: Unlabored respiratory effort, Clear to auscultation bilaterally. No wheezes rales or rhonchi GI: Soft, + suprapubic tenderness , no CVAT Nondistended, No hepatosplenomegaly. No guarding or rebound. MSK: Extremities w/o deformity or TTP, No cyanosis or clubbing, full range of motion Skin: Warm, Dry. No rashes or lesions. 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 Sensation grossly intact, no focal neurologic deficits. Psych: (AAO) x3. Appropriate mood and affect Course Vital Signs Vital signs: Vital Signs Temperature 37.1 C 03/22/23 09:03 Pulse 55 L 03/22/23 09:03 Respiratory Rate 16 03/22/23 09:03 Blood Pressure 157/86 H 03/22/23 09:03 Pulse Oximetry 100 03/22/23 09:03 Temperature 37.1 C 03/22/23 09:03 Temperature Source Temporal Artery Scan 03/22/23 09:03 Pulse 55 L 03/22/23 09:03 Respiratory Rate 16 03/22/23 09:03 Respiratory Effort Normal, Non-Labored 03/22/23 09:07 Blood Pressure 157/86 H 03/22/23 09:03 Blood Pressure Position Sitting 03/22/23 09:03 Pulse Oximetry 100 03/22/23 09:03 Oxygen Delivery Method Room Air 03/22/23 09:03 Oxygen Flow Rate 0 03/22/23 09:03
[2023-03-22 09:44] LABS: Abs Immature Grans 0.01 10^3/uL (0.0-0.06); Absolute Basophil Count 0.03 10^3/uL (0.0-0.2); Absolute Eosinophil Count 0.13 10^3/uL (0.0-0.7); Absolute Lymphocyte Count 2.16 10^3/uL (1.2-3.4); Absolute Monocyte Count 0.47 10^3/uL (0.1-0.8); Absolute Neutrophil Count 4.58 10^3/uL (1.2-6.7); Basophils % 0.4; Eosinophils % 1.8; HCT 42.2 % (40.0-50.0); HGB 14.9 g/dL (13.5-17.5); Immature Grans % 0.1; Lymphocytes % 29.3; MCH 32.4 pg (27.0-33.0); MCHC 35.3 % (32.0-36.0); MCV 92 fL (80-95); MPV 10.2 fL (8.0-11.0); Monocytes % 6.4; Platelet Count 252 10^3/uL (130-400); RDW-SD 43.9 fL; WBC 7.38 10^3/uL (4.4-10.8)
[2023-03-22] MEDS: FAMOTIDINE 20 MG in Normal Saline 100 ML 400 MG IVPB (09:55)
[2023-03-22] MEDS: Ondansetron 4 MG/2 ML VIAL IVP (09:55)
[2023-03-22 10:01] LABS: ALT 26 U/L (16-63); AST 14 U/L (15-37); Albumin 4.1 g/dL (3.4-5.0); Alkaline Phosphatase 69 U/L (46-116); Anion Gap 9.4 mmol/L (3-11); BUN 11 mg/dL (7-18); Bilirubin, Total 0.4 mg/dL (0.2-1.0); CO2 26.6 mmol/L (21.0-32.0); Chloride 103 mmol/L (98-107); Estimated GFR 96.97 (mL/min/1.73m2); Glucose 132 mg/dL (74-106); Potassium 3.7 mmol/L (3.5-5.1); Sodium 139 mmol/L (136-145); Total Protein 7.4 g/dL (6.4-8.2); Troponin I < 50 ng/L (<or=60)
--- NOTE | 2023-03-22 10:15 | DI.CT_ITS ---
Exam(s) CT ABDOMEN PELVIS W EXAM: CT ABDOMEN PELVIS W CLINICAL HISTORY: abdominal pain TECHNIQUE: Imaging Protocol: Axial computed tomography images with coronal and sagittal reformatted images were created and reviewed CONTRAST MATERIAL: Intravenous: Omnipaque 350 Contrast volume:100 mL Oral: No COMPARISON: CT CT ABDOMEN PELVIS W from 03/15/2021 FINDINGS: ABDOMEN: Lung Bases: Normal where visualized. Liver: Normal density. No measurable mass. Portal, Superior Mesenteric, and Splenic Veins: Unremarkable. Gallbladder and Biliary Tract: Status post cholecystectomy. No significant biliary ductal dilatation . Pancreas: Normal density, no abnormal calcifications or inflammatory process. Spleen: Normal. Adrenals: No masses seen. Kidneys: Normal size, contour and axis. There is bilateral nephrolithiasis. Note is made of a comple te left duplicated collecting system without evidence of obstruction. The right kidney shows no evid ence of obstructive uropathy. No masses seen. Abdominal Aorta: Abdominal portion non-dilated. Atherosclerosis. Bowel: There is no evidence of bowel obstruction. There is mild nonspecific thickening of the wall o f the small bowel. There is no evidence of appendicitis. Peritoneal Cavity: No ascites, collection or mesenteric inflammatory response. No free air. Lymph Nodes: Within normal limits. Bones: Within normal limits for the patient's age. Soft Tissues: Unremarkable. PELVIS: Bladder: There is mild diffuse thickening of the wall of the urinary bladder. Reproductive Organs: Unremarkable as visualized. Lymph Nodes: Within normal limits. Bones: Within normal limits for the patient's age. IMPRESSION: 1. Bilateral nephrolithiasis without evidence of obstructive uropathy. 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 2. Nonspecific thickening of the wall of the urinary bladder. This may be due to underdistention but cystitis cannot be excluded. Please correlate clinically. 3. Nonspecific small bowel wall thickening. This can be seen with an enteritis. 4. Findings were discussed with at 10:48 a.m. on 03/22/2023. RADIATION DOSE DELIVERED: Total DLP DATA REPOSITORY: All CT scans at this facility are submitted to the National Radiology Data Registry (NRDR) Dose Index Registry (DIR) with the [employer] (A[employer]). RADIATION OPTIMIZATION: All CT scans at this facility use at least one of these dose optimization te chniques: automated exposure control; mA and/or kV adjustment per patient size (includes targeted exa ms where dose is matched to clinical indication); or iterative reconstruction.
[2023-03-22] MEDS: Omnipaque 350 MG/ML 100 ML BTL IJ (10:22)
[2023-03-22] MEDS: Normal Saline - Diluent 50 ML VIAL IJ (10:22)
[2023-03-22] MEDS: Normal Saline Flush 10 ML SYR IVP (10:22)
[2023-03-22 11:10] LABS: Bilirubin Negative (Negative); Blood Negative (Negative); Clarity Clear (Clear); Glucose Negative (Negative); Ketones Negative (Negative); Leukocyte Esterase Negative (Negative); Nitrite Negative (Negative); Specific Gravity 1.025 (1.005-1.025); Urobilinogen 0.2 mg/dL (Up to 0.2)
[2023-03-22 11:22] LABS: Epithelial Cells Rare HPF (Negative); RBC Negative HPF (0-2); WBC Negative HPF (0-5)
[2023-03-22 11:23] LABS: Bacteria Negative HPF (Negative); C & S Indicated? No; Casts 0-2 Hyaline LPF (Negative); Crystals Negative HPF (Negative); Mucus Trace (Negative)
--- NOTE | 2023-03-22 13:41 | NUR.NOTE ---
Referral given to Care Management to establish care, routine follow up, needs pcp. Nursing Note:
== END 2023-03-22 11:33 | disposition home or self-care (01) ==
PROVIDERS: Emergency Provider Emergency Medicine
DX: N20.0 Calculus of kidney (principal); Q63.8 Other specified congenital malformations of kidney; R00.1 Bradycardia, unspecified; J44.9 Chronic obstructive pulmonary disease, unspecified; K74.60 Unspecified cirrhosis of liver; B19.20 Unspecified viral hepatitis C without hepatic coma
CPT/HCPCS: 80053; 93005; 99285; 74177; 81003; 81015; 84484; 85025; 93010; J2405; J3490

== ENCOUNTER 2025-03-23 10:50 | Emergency (ER) | payer MEDICAID, SELFPAY ==
[2025-03-23 10:51] VITALS: BP 145/79; PULSE 57; RESP 15; TEMP 37.2; O2SAT 99
--- NOTE | 2025-03-23 11:15 | DI.RAD_ITS ---
Exam(s) XR CHEST 2V PA LATERAL EXAM: XR CHEST 2V PA LATERAL CLINICAL HISTORY: right thorax pain TECHNIQUE: 2D digital imaging was performed of the chest. Two images were obtained. PA and lateral views were obtained. COMPARISON: CR CHEST 2 VIEWS PA,LAT from 07/30/2007 CR CHEST 2 VIEWS PA,LAT from 11/11/2015 FINDINGS: MEDIASTINUM: Normal. HEART: Normal. PULMONARY VASCULATURE: Normal. LUNGS: The lungs are hyperinflated with flattened diaphragms suggesting underlying COPD. There is no focal consolidation. PLEURAL SPACE: No pleural effusion or pneumothorax. BONE:Within normal limits for the patient's age. OTHER FINDINGS:Normal. IMPRESSION: No acute pulmonary findings. DATA REPOSITORY: RADIATION DOSE DELIVERED:
--- NOTE | 2025-03-23 15:08 | W.ED.GENAD ---
Discharge Plan Disposition Patient Disposition: Home Discharge Details Clinical Impression: Back pain, thoracic Primary Care Provider: None,None ED Provider: Juanita Stanton Home Meds and New Rx's Prescriptions: New cyclobenzaprine 10 mg tablet 10 mg PO TID PRNQty: 10 0RF Continued acetaminophen [Acetaminophen Extra Strength] 500 mg Tablet 1,000 mg PO DIRECTED PRN ibuprofen 600 mg tablet 400 mg PO Q6H PRN Rx Instructions: w/ food Discharge Instructions Instructions: Upper Back Pain (DC), Managing acute pain at home Additional Instructions: You can take 600 mg of ibuprofen every 8 hours with food Please add heating pad or ice whatever feels better several hours after application to your back Continue stretching Return with persistent symptoms longer than 3 additional days worsening pain, fever, chills, or should any new concerns arise Discharge Data Discharge Date/Time-TO BE ENTERED AT DEPARTURE: 03/23/25 12:04 HPI General Date/Time Provider Initiated Documentation: 03/23/25 10:53. HPI Narrative: This 44-year-old male presents with a report of back pain for the past 2 weeks. He states he strained his back initially lifting some shingles which were heavy. He then bowled 2 days ago and states the pain was dramatically worse after this. He denies any shortness of breath he states with breathing and movement his pain worsens. He denies prior history of blood clots denies any recent flight surgery or long drive. Denies any fever or chills, calf pain or swelling. Related Data Home Medications ?Medication ?Instructions ?Recorded ?Confirmed acetaminophen 500 mg tablet 1,000 mg PO DIRECTED PRN 05/04/21 03/23/25 (Acetaminophen Extra Strength) ibuprofen 600 mg tablet 400 mg PO Q6H PRN 03/22/23 03/23/25 cyclobenzaprine 10 mg tablet 10 mg PO TID PRN #10 tabs 03/23/25 Previous Rx's ?Medication ?Instructions ?Recorded cyclobenzaprine 10 mg tablet 10 mg PO TID PRN #10 tabs 03/23/25 Allergies Allergy/AdvReac Type Severity Reaction Status Date / Time No Known Allergies Allergy Unverified 03/23/25 10:55 General Stated Complaint: Nk/Back Pain ALONDRA: 3 Exam Narrative Exam Narrative: Alert and oriented 44-year-old male, no acute distress reproducible tenderness over paraspinal muscles in the thoracic region and part of the latissimus dorsi. Lungs are clear to auscultation distal pulses are intact no CVA tenderness no abdominal bruit or pulsatile mass Course Vital Signs Vital signs: Vital Signs Temperature 37.2 C 03/23/25 10:51 Pulse 57 L 03/23/25 10:51 Respiratory Rate 15 03/23/25 10:51 Blood Pressure 145/79 H 03/23/25 10:51 Pulse Oximetry 99 03/23/25 10:51 Temperature 37.2 C 03/23/25 10:51 Temperature Source Oral 03/23/25 10:51 Pulse 57 L 03/23/25 10:51 Respiratory Rate 15 03/23/25 10:51 Blood Pressure 145/79 H 03/23/25 10:51 Blood Pressure Position Sitting 03/23/25 10:51 Pulse Oximetry 99 03/23/25 10:51 Oxygen Delivery Method Room Air 03/23/25 10:51 Oxygen Flow Rate 0 03/23/25 10:51 Pain Level 8 03/23/25 10:51 Medical Decision Making Results: Chest x-ray per radiology interpretation on my review does not show acute pathology Assessment and plan: Patient likely has musculoskeletal back strain, he was given a prescription for Flexeril and will continue Motrin and Tylenol at home. Appropriate Motrin dosing reviewed with patient. No clinical findings consistent with cauda equina syndrome and patient is quite neurologically intact. Low suspicion clinically for PE based on assessment no hypoxia, no tachycardia, no tachypnea. Chest x-ray is inconsistent with pneumonia and there is no pneumothorax. Patient will continue supportive care and Flexeril as needed. Return precautions reviewed and patient expressed understanding recheck in 3 days with PCP persistent symptoms encouraged. 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) Biliary colic (Acute) Smoker (Acute) Anxiety (Chronic) Hepatitis C antibody positive in blood (Acute) Hx of drug abuse (Acute) Family history of [place] (myocardial infarction) (Acute) COPD (chronic obstructive pulmonary disease) (Chronic) Elevated cholesterol (Chronic) Gallstones without obstruction of gallbladder (Acute) Medical History Elevated cholesterol with elevated triglycerides Surgical History History of appendectomy History of cholecystectomy (~05/05/21) Social History Smoking/Tobacco Use Status: Current every day Tobacco Type: cigarettes Years smoked: 28 Smoking risk assessment performed?: Yes Alcohol Intake: never Drug use: Occasionally Substance use type: marijuana Housing: apartment Current gender identity: male Do you feel safe at home: Yes Do you feel safe in your relationship?: Yes
== END 2025-03-23 12:04 | disposition home or self-care (01) ==
PROVIDERS: Emergency Provider Physician Assistant
DX: M54.6 Pain in thoracic spine (principal)
CPT/HCPCS: 99283 ×2; 71046

== ENCOUNTER 2025-05-23 08:23 | Emergency (ER) | payer SELFPAY ==
[2025-05-23 08:26] VITALS: BP 141/79; PULSE 69; RESP 18; TEMP 36.7; O2SAT 99
--- NOTE | 2025-05-23 08:55 | DI.RAD_ITS ---
Exam(s) XR ANKLE RT COMPLETE EXAM: XR ANKLE RT COMPLETE CLINICAL HISTORY: R ankle pain, 6 days ago. TECHNIQUE: 2D digital imaging was performed. Three views. COMPARISON: No exams were available for comparison FINDINGS: BONES: No acute fracture is present. No bony destructive lesion is seen. JOINTS: The ankle mortise is normally aligned. SOFT TISSUE: Normal. IMPRESSION: Unremarkable radiographs of the right ankle. DATA REPOSITORY: RADIATION DOSE DELIVERED:
--- NOTE | 2025-05-23 09:18 | ED.GENADUL_ITS ---
Discharge Plan Disposition Patient Disposition: Home Condition: Stable Discharge Details Clinical Impression: Sprain of right ankle Primary Care Provider: None,None ED Provider: Joseluis Torres Home Meds and New Rx's Prescriptions: Continued acetaminophen [Acetaminophen Extra Strength] 500 mg Tablet 1,000 mg PO DIRECTED PRN ibuprofen 600 mg tablet 400 mg PO Q6H PRN Rx Instructions: w/ food Discharge Instructions Instructions: Ankle Sprain ED Additional Instructions: You were seen in the emergency department for the sprain of your right ankle, there is no fracture on your x-ray and no other abnormality seen. Please use therapeutic dosing of Tylenol (acetamenophen) & Advil (ibuprofen) in an alternating fashion as follows: Take 400-600mg of Advil also on a 6 hour schedule, that is also 4 times per day. Please follow your acetaminophen guidelines from your liver history that your pr ior doctors have given you in regards to limiting Tylenol use due to cirrhosis Please note that some common cold medications & prescription pain medications may contain acetamenophen and you need to read OTC drug labels and factor that in to maximum daily dosings. Please rest, ice, compress and elevate the foot, remain in the Nehemiah wrap as needed. Follow-up with orthopedics if you fail to improve Stand Alone Forms: Portal Information, Work Release Referrals: [facility] [Provider Group] Discharge Data Discharge Date/Time-TO BE ENTERED AT DEPARTURE: 05/23/25 09:53 HPI General Date/Time Provider Initiated Documentation: 05/23/25 08:33 . 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 Quality described as aching pain, getting worse as he has been working 12 hour days on the injury, no radiation to numbness, bruising, gross swelling, redness. Severity is described as moderate. Palliating factors include has been taking APAP/NSAIDs and occasional icing. Provoking factors include walking on it. Patient not anticoagulated. Related Data Home Medications ?Medication ?Instructions ?Recorded ?Confirmed acetaminophen 500 mg tablet 1,000 mg PO DIRECTED ME N 05/04/21 05/23/25 (Acetaminophen Extra Strength) ibuprofen 600 mg tablet 400 mg PO Q6H PRN 03/22/23 1 07/24/24 Allergies Allergy/AdvReac Type Severity Reaction Status Date / Time No Known Allergies Allergy Unverified 05/23/25 08:30 General Stated Complaint: Orthopedic ALONDRA: 4 Review of Systems All systems reviewed & are unremarkable except as noted in HPI and below Exam Narrative Exam Narrative: GENERAL APPEARANCE: Well-nourished, non-toxic, awake and alert, atraumatic, no acute distress. SKIN: Warm, pink, dry, intact, without rashes/lesions/ulcerations. HEAD: Normocephalic, atraumatic, normal hair distribution for gender/age. EYES: Normal conjunctiva, no exudates on lids/lashes. ENT: Nares patent, no circumoral cyanosis, no facial swelling NECK: Supple, trachea midline, painless cervical ROM. LUNGS/CHEST: Non-labored respirations, normal A/P diameter, symmetrical expansion, no chest wall deformity HEART (CV/PV): Regular rate, no peripheral edema, no JVD. ABDOMEN: Soft, non-distended, no guarding. MSK: Moving all extremities without weakness, no cyanosis, spine midline without tenderness, normal curvature. R ANKLE: right ankle tenderness without crepitus or deformity, no significant swelling or ecchymosis, no fibular head tenderness, range of motion intact in the ankle, right dorsalis pedis pulse 2+, sensation intact NEURO: Mental Status AAOx4 - alert to person, place, time, events No facial droop, no forehead involvement. Motor: No focal weakness - strength 5/5 in bilateral UEs and LEs, proximal and distal, symmetric. Sensory: sensation intact to light touch globally. Gait antalgic PSYCH: euthymic, cooperative, pleasant, appropriate speech Course Vital Signs Vital signs: Vital Signs Temperature 36.7 C 05/23/25 08:26 Pulse 69 05/23/25 08:26 Respiratory Rate 18 05/23/25 08:26 Blood Pressure 141/79 H 05/23/25 08:26 Pulse Oximetry 99 05/23/25 08:26 Temperature 36.7 C 05/23/25 08:26 Temperature Source Oral 05/23/25 08:26 Pulse 69 05/23/25 08:26 Respiratory Rate 18 05/23/25 08:26 Blood Pressure 141/79 H 05/23/25 08:26 Pulse Oximetry 99 05/23/25 08:26 Oxygen Delivery Method Room Air 05/23/25 08:26 Oxygen Flow Rate 0 05/23/25 08:26 Medical Decision Making This dictation utilizes [id number] dictation software and may contain unedited grammatical errors. 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 Quality described as aching pain, getting worse as he has been working 12 hour days on the injury, no radiation to numbness, bruising, gross swelling, redness. Severity is described as moderate. Palliating factors include has been taking APAP/NSAIDs and occasional icing. Provoking factors include walking on it. Patients' medical history: Noncontributory. 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 Pertinent exam findings / vital signs include right ankle tenderness without crepitus or deformity, no significant swelling or ecchymosis, no fibular head tenderness, range of motion intact in the ankle, right dorsalis pedis pulse 2+, sensation intact Differential / pathologies of concern include ankle sprain, unlikely fracture with ambulating for 6 days. Diagnostic studies of: - XR R ankle-shows no fracture. Interventions of: - Nehemiah wrap, recommend RICE therapy and therapy [place] Tylenol and ibuprofen, provided work note to take a couple days off. ED Course/Assessment/Plan: 44-year-old male has been walking on sprained ankle for 6 days, no fracture on x-ray, exam within normal limits, recommend RICE therapy and therapeutic dose of Tylenol and ibuprofen and follow-up with orthopedics for failure to improve. Findings not consistent with fracture or neurovascular compromise. Disposition of sprain of right ankle. Patient verbalized understanding of the plan and return to ED criteria and engaged in shared decision making. Medical Records Medical records reviewed: Yes I reviewed the patient's medical records. Imaging Data Radiologic Study: Attestation: I personally reviewed and interpreted this imaging study as follows: Imaging: X-Ray Radiologist's impression: EXAM: XR ANKLE RT COMPLETE CLINICAL HISTORY: R ankle pain, 6 days ago. TECHNIQUE: 2D digital imaging was performed. Three views. COMPARISON: No exams were available for comparison FINDINGS: BONES: No acute fracture is present. No bony destructive lesion is seen. JOINTS: The ankle mortise is normally aligned. SOFT TISSUE: Normal. IMPRESSION: Unremarkable radiographs of the right ankle. 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) Biliary colic (Acute) Smoker (Acute) Anxiety (Chronic) Hepatitis C antibody positive in blood (Acute) Hx of drug abuse (Acute) Family history of [place] (myocardial infarction) (Acute) COPD (chronic obstructive pulmonary disease) (Chronic) Elevated cholesterol (Chronic) Gallstones without obstruction of gallbladder (Acute) Medical History Elevated cholesterol with elevated triglycerides Surgical History History of appendectomy History of cholecystectomy (~05/05/21) Social History Smoking/Tobacco Use Status: Current every day Tobacco Type: cigarettes Years smoked: 28 Smoking risk assessment performed?: Yes Alcohol Intake: never Drug use: Daily Substance use type: marijuana Housing: apartment Current gender identity: male Do you feel safe at home: Yes Do you feel safe in your relationship?: Yes
[2025-05-23 09:34] VITALS: BP 155/81
== END 2025-05-23 09:53 | disposition home or self-care (01) ==
PROVIDERS: Emergency Provider Physician Assistant
DX: S93.401A Sprain of unspecified ligament of right ankle, initial encounter (principal); W00.0XXA Fall on same level due to ice and snow, initial encounter; Y99.0 Civilian activity done for income or pay
CPT/HCPCS: 99283 ×2; 73610